=== PATIENT | female | born 1945 | race Caucasian/White ===

== ENCOUNTER 2024-09-16 12:36 | Outpatient (CLI) | payer MEDICARE ==
[~2024-09-16] VITALS: Ht 165.1 cm; Wt 99.8 kg
[2024-09-16] MEDS: albuterol 2.5 MG/3 ML nebule NEB ONE (13:16)
[2024-09-16 13:18] VITALS: PULSE 96; RESP 15; O2SAT 0
[2024-09-16 13:29] VITALS: PULSE 72; RESP 16
== END 2024-09-16 23:59 | disposition home or self-care (01) ==
LOC: RT 12:36
PROVIDERS: ATTEND Physician Assistant
DX: R94.2 Abnormal results of pulmonary function studies (principal); R06.02 Shortness of breath
CPT/HCPCS: 94060; 94760